=== PATIENT | female | born 1995 | race Caucasian/White ===

== ENCOUNTER 2022-07-09 21:30 | Emergency (ER) | payer OTHER ==
[2022-07-09] MEDS ORDERED: Ibuprofen 800 MG TAB ONE (22:41)
[2022-07-09] MEDS ORDERED: Benzonatate 100 MG CAP ONE (23:36)
[2022-07-09] MEDS ORDERED: Bicillin LA 1.2 MILLION UNITS/2 ML SYRINGE ONE (23:36)
== END 2022-07-10 00:18 | disposition home or self-care (01) ==
LOC: MADERS 21:30
DX: J02.0 Streptococcal pharyngitis (principal); J10.1 Influenza due to other identified influenza virus with other respiratory manifestations; E11.9 Type 2 diabetes mellitus without complications
CPT/HCPCS: 87430; 87804; 96372; 99283; J0561

== ENCOUNTER 2024-05-29 20:17 | Emergency (ER) | payer BC, OTHER, SELFPAY ==
[2024-05-29 21:49] LABS: Hematocrit 38.3 % (36.0-47.0); Hemoglobin 12.2 g/dL (12.0-16.0); Mean Corpuscular HGB CONC 31.9 g/dL (32.0-36.0); Mean Corpuscular Hemoglobin 25.4 pg (27.0-31.0); Mean Corpuscular Volume 79.6 fl (78.0-98.0); Mean Platelet Volume 7.2 fL (7.4-10.4); Platelet Count 393 10x3/uL (130-400); Red Blood Cell (RBC) Count 4.82 mill/uL (4.20-5.40); White Blood Cell (WBC) Count 14.1 10x3/uL (4.8-10.8)
[2024-05-29 22:16] LABS: Anion Gap 14 mmol/L (10-20); BUN (Urea Nitrogen) 8 mg/dL (7.0-18.7); Calc. Creatinine Clearance 0 mL/min (70-130); Calcium 9.3 mg/dL (7.8-10.44); Carbon Dioxide 23 mmol/L (22-29); Chloride 107 mmol/L (98-107); Estimated GFR 112; Glucose 104 mg/dL (70-105); Magnesium 1.8 mg/dL (1.6-2.6); Sodium 140 mmol/L (136-145)
== END 2024-05-29 23:25 | disposition home or self-care (01) ==
LOC: MADERS 20:17
DX: R00.0 Tachycardia, unspecified (principal); D72.829 Elevated white blood cell count, unspecified; E11.9 Type 2 diabetes mellitus without complications; I10 Essential (primary) hypertension; E03.9 Hypothyroidism, unspecified; Z79.84 Long term (current) use of oral hypoglycemic drugs; Z79.890 Hormone replacement therapy
CPT/HCPCS: 36415; 71045; 80048; 83735; 84443; 85027; 93005